=== PATIENT | female | born 1975 | race Two or more races ===

== ENCOUNTER 2019-08-14 09:08 | Day surgery (SDC) | payer OTHER ==
[2019-08-14] MEDS ORDERED: KETOROLAC TROMETHAMINE 30 MG INJ IM ONE (09:09)
[2019-08-14] MEDS ORDERED: CEFAZOLIN 1 G VIAL MC ONE (09:09)
[2019-08-14] MEDS ORDERED: PROPOFOL 200 MG/20 ML BOTTLE IV ONE (09:09)
[2019-08-14] MEDS ORDERED: METOCLOPRAMIDE HCL 10 MG/2 ML VIAL IV ONE (09:09)
[2019-08-14] MEDS ORDERED: GLYCOPYRROLATE 0.2 MG/ML VIAL MC ONE (09:09)
[2019-08-14] MEDS ORDERED: POLYMYXIN B SULFATE 500,000 UNITS, BACITRACIN 50,000 UNITS, NORMAL SALINE 20 ML MC ONE ×3 (09:45)
[2019-08-14 10:00] LABS: *URINE HCG, QUAL NEGATIVE (NEGATIVE)
[2019-08-14] MEDS ORDERED: MIDAZOLAM HCL 2 MG/2 ML VIAL ONE (10:17)
[2019-08-14] MEDS ORDERED: FENTANYL CITRATE 250 MCG/5 ML AMPUL ONE (10:18)
[2019-08-14] MEDS ORDERED: BACITRACIN ZINC OINT 15 GM TUBE ONE (10:40)
[2019-08-14] MEDS ORDERED: BUPIVACAINE PF 0.5% 30 ML VIAL ONE (10:40)
[2019-08-14] MEDS ORDERED: SEVOFLURANE 250 ML BOTTLE ONE (11:11)
[2019-08-14] MEDS ORDERED: ONDANSETRON 4 MG/2 ML VIAL ONE ×2 (11:51→12:33)
[2019-08-14] MEDS ORDERED: FENTANYL CITRATE 100 MCG/2 ML AMPUL ONE (11:52)
[2019-08-14] MEDS ORDERED: TRAMADOL HCL 50 MG TABLET ONE (12:54)
== END 2019-08-14 14:37 | disposition home or self-care (01) ==
LOC: DS 09:08
PROVIDERS: ATTEND Orthopaedic Surgery
DX: M77.01 Medial epicondylitis, right elbow (principal); F15.90 Other stimulant use, unspecified, uncomplicated; Z98.891 History of uterine scar from previous surgery; Z98.890 Other specified postprocedural states
CPT/HCPCS: 24140; 24359; 84703; 88304; J0690; J1885; J2250; J2405 ×2; J2765; J3010 ×2; J3490 ×4; J7120; A4663